=== PATIENT | male | born 1985 | race Caucasian/White ===

== ENCOUNTER 2024-02-24 02:02 | Outpatient (CLI) | payer OTHER, SELFPAY | END 2024-02-24 02:03 | disposition home or self-care (01) | LOC: AMB 03-08 23:28 | PROVIDERS: Visit Provider Family Medicine | DX: F10.129 Alcohol abuse with intoxication, unspecified (principal) | CPT/HCPCS: A0425; A0427 ==

== ENCOUNTER 2024-02-24 02:28 | Emergency (ER) | payer OTHER, SELFPAY ==
--- NOTE | 2024-02-24 03:41 | ED_ITS ---
HPI - General Adult General Stated complaint: ETOH Time Seen by Provider: 02/24/24 03:39 History of Present Illness HPI narrative: ??Clinical down time documentation on Abdullahi munguia- Patient brought in by police department for ?medical clearance for confinement? but they state that they have no intention of taking him to intermediate as they will be filing charges outpatient instead.? Patient was reportedly observed to be slipping pills into females drinks at a local bar and then was discovered in the restroom.? He was acting disorderly and toxic a did and EMS was called as well as the police.? When the police picked him up, he was repeatedly banging his head against the car, no loss of consciousness or obvious injury was noted.? EMS was called for medical clearance and he did calm down nicely for them and was cooperative.? I observed him coming into the medical unit where he was loudly conversing with EMS but is not hostile or aggressive.? He asks how he can help and intoxicated will scoot over on to the appropriate bed and answer our questions.? He repeatedly shows off his multiple buttons on his best which are political buttons of nature, some of which are outdated.? It clear that this is an attempt to be funny.? He is feeling a little nauseated and admits to drinking lots of alcohol but denies any other substance intoxication.? I do not address the police allegations with him.? He denies any recent illness or injury. He states that his past medical history is notable for ADHD and anxiety.? Reports that his home medications are Lexapro, Adderall and lorazepam though the lorazepam is really just for flying and wrist product use, denies use of any of those tonight.? Last Adderall was yesterday, only took 1 in when he usually takes 2 per day.? Cannot remember how many alcoholic beverages he has had today but it is ?several?.? He has been detained for at least the last 90 minutes as the ambulance team was out on several other calls and has not consumed any additional alcohol within that time frame.? EMS did not notice any respiratory depression or neurological impairment.? They did not administer any medications but did place a peripheral IV.? Police arrive shortly before patient to the emergency department but try to stay out of site as previously at the bar, there presents did make him more irritable. Patient offers no additional history for me today.? He does state that his sister could come get him if needed tonight. On exam, blood pressure 147/104 with O2 sats of 97% on room air pulse of 88 temp 98.5? generally he is awake and alert will follow commands, I do observe him getting up out of bed to attempt to vomit but really just dry heaves.? He will answer my questions appropriately in attempts to be funny, makes good eye contact moves all extremities easily and symmetrically, obviously protecting his airway well.? The head appears atraumatic as the pupils are equal round, reactive to light normal extraocular movements.? Oropharynx with acyanotic lips moist membranes, no tongue biting, no dental injuries.? The neck has full range of motion with no meningeal signs heart with regular rate rhythm no murmurs rubs or gallops lungs with good air entry in all roland no wheezes rales or rhonchi abdomen is soft nontender nondistended with no masses, no hepatosplenomegaly he moves all 4 extremities easily and symmetrically and I do observe both arms and the legs with no signs of injury, bruising or trauma.? Neurologically with normal speech, normal gait, symmetric movements and no tremors.? Mood show signs of obvious intoxication but fairly good recall, no obvious suicidal or homicidal ideation, no paranoia, normal thought process. No laboratory studies indicated. ED course:? Counseled the law enforcement regarding their intent, they are comfortable with patient being discharged, they will not be detaining him.? We will attempt to find a ride home for patient.? There are no indications to continue monitoring as he has stopped drinking more than 90 minutes ago and is protecting his airway well.? No evidence that he has consumed other drugs that would cause further impairment.? I have no indications to put the patient on a medical hold at this time.? If he can be discharged with a responsible adult family member, it is safe to do so. Assessment public intoxication without evidence of harmful psychiatric or medical etiology. Plan:? Discharge with responsible adult.? Police charges pending. Update:? Tech was able to locate patient's sister by phone and she is coming to get him.? Patient was agreeable with this plan.? End of documentation Discharge Plan Discharge Clinical Impression: Alcohol intoxication, Under investigation by police Patient Disposition: Home w/ Parent or Adult Condition: Stable Instructions: Alcohol Intoxication (ED) Additional Instructions: Discharge instructions on Abdullahi Munguia: Diagnosis: Public intoxication I do apologize for the unprofessional nature of these written instructions.? Once monthly, we have to perform computer updates that impair our ability to give you a note with typical appearance.? Your brought to the emergency department because the police were concerned that there could be a psychiatric illness causing your hostility.? No evidence of this was found.? He will be discharged home with a responsible adult to continue to help you sober up.? The please may have additional charges in follow-up for you but at this time, they have not recommended that you be taken to intermediate. You are medically cleared for discharge from the emergency department at this time. I would recommend that you consider cutting back on your alcohol intake to avoid similar situation in the future.? You may continue use of your medications as prescribed. Stand Alone Forms: [employer] Info Instructions
[2024-02-24 03:56] VITALS: BP 124/81; PULSE 84; RESP 18; TEMP 36.8; O2SAT 98; BMI 32.5
--- NOTE | 2024-02-24 04:01 | ED.NURSE ---
Pt's sober ride, Obed, drove from [place] and picked pt up in the ER. Pt has no further questions for this nurse upon discharge. Pt belonging items had been previously documented and were returned to pt upon discharge.
== END 2024-02-24 04:02 | disposition home or self-care (01) ==
LOC: ED 03:51
PROVIDERS: Emergency Provider Family Medicine
DX: F10.129 Alcohol abuse with intoxication, unspecified (principal)
CPT/HCPCS: 99282; 99283